=== PATIENT | female | born 1990 | race Caucasian/White ===

== ENCOUNTER 2019-01-02 17:37 | Emergency (ER) | payer OTHER ==
[~2019-01-02] VITALS: Ht 165.1 cm; Wt 74.8 kg
[~2019-01-02 17:37] MED LIST: IBUP800 PO
[2019-01-02] MEDS ORDERED: GABA100 (18:21)
[2019-01-02] MEDS ORDERED: TRAZ50 (18:22)
[2019-01-02] MEDS ORDERED: LORA.5 (18:22)
== END 2019-01-02 21:36 | disposition home or self-care (01) ==
LOC: ER 17:37
DX: S02.32XA Fracture of orbital floor, left side, initial encounter for closed fracture (principal); S02.2XXA Fracture of nasal bones, initial encounter for closed fracture; R45.1 Restlessness and agitation; F17.200 Nicotine dependence, unspecified, uncomplicated; Z79.899 Other long term (current) drug therapy; Y04.2XXA Assault by strike against or bumped into by another person, initial encounter
CPT/HCPCS: 70450; 99283-25